=== PATIENT | female | born 1980 | race Caucasian/White ===

== ENCOUNTER 2017-06-05 18:46 | Emergency (ER) | payer OTHER ==
[~2017-06-05] VITALS: Ht 162.6 cm; Wt 102.5 kg
[~2017-06-05 18:46] MED LIST: ALBU90OI INH; BIRTH CONTROL PO; CHOLESTEROL MED; DIPATR PO; DIPH50 PO; FERSU250ER PO; HYDACE5 PO; NAPR500 PO; NORT10 PO; OXYACE5T PO; PENVK500 PO; PRED20 PO; PROACE100 PO; PROM25 PO; RXPROACE PO; SPIR25 PO; SULTRIDS PO; SULTRISS PO; TRAM50 PO; [UNRECOGNIZED DRUG - REMARK]
[2017-06-05 19:36] LABS: BASOPHILS PERCENT AUTO 0 % (0-2); EOSINOPHILS ABSOLUTE AUTO 0.18 K/mm3 (0.00-0.68); EOSINOPHILS PERCENT AUTO 2 % (0-6); Hematocrit 40.9 % (33.0-51.0); Hemoglobin 13.9 g/dL (11.5-16.0); IMMATURE GRAN ABSOLUTE AUTO 0.01 K/mm3 (0.00-0.10); IMMATURE GRAN PERCENT AUTO 0 % (0-1); LYMPHOCYTES ABSOLUTE AUTO 3.08 K/mm3 (0.84-5.20); LYMPHOCYTES PERCENT AUTO 34 % (21-46); MONOCYTES ABSOLUTE AUTO 0.58 K/mm3 (0.16-1.47); MONOCYTES PERCENT AUTO 6 % (4-13); Mean Corpuscular HGB 30.7 pg (26.0-34.0); Mean Corpuscular Volume 90 fL (80-100); Mean Platelet Volume 11.5 fL (9.1-12.4); NEUTROPHILS ABSOLUTE AUTO 5.29 K/mm3 (1.96-9.15); NEUTROPHILS PERCENT AUTO 58 % (41-73); Platelet Count 236 K/mm3 (150-400); RDW Coefficient Variation 12.6 % (11.7-14.2); RDW Standard Deviation 41.4 fL (35.1-46.3); Red Blood Cell Count 4.53 M/mm3 (3.80-5.20); White Blood Cell Count 9.14 K/mm3 (4.00-11.30)
[2017-06-05 19:41] LABS: Alanine Aminotransfer (ALT/SGP 59 U/L (12-78); Albumin, Blood 3.8 g/dL (3.4-5.0); Alk Phos 90 U/L (50-136); Anion Gap 8 mmol/L (6-16); Aspartate Aminotrans (AST/SGOT 33 U/L (12-37); Bilirubin, Total 0.5 mg/dL (0.1-1.0); Blood Urea Nitrogen 9 mg/dL (8-24); Bun/Creatinine Ratio 13.7 (12.0-20.0); CO2, Blood 25 mmol/L (21-32); Calcium, Blood 8.9 mg/dL (8.5-10.1); Chloride, Blood 107 mmol/L (98-108); Creatinine, Blood 0.66 mg/dL (0.40-1.00); Glomerular Filtration Rate >60 (60-); Glucose, Blood 95 mg/dL (70-99); Potassium, Blood 3.5 mmol/L (3.5-5.5); Sodium, Blood 140 mmol/L (136-145); Total Protein, Blood 7.8 g/dL (6.4-8.2); Troponin I <0.015 ng/mL (0.000-0.040)
[2017-06-05] MEDS ORDERED: LISI5 PO (21:20)
[2017-06-05] MEDS ORDERED: PREG150 PO (21:20)
[2017-06-05] MEDS ORDERED: METF500 PO (21:20)
== END 2017-06-05 22:36 | disposition home or self-care (01) ==
LOC: ER 18:46
PROVIDERS: Physician Assistant
DX: R07.9 Chest pain, unspecified (principal); E11.40 Type 2 diabetes mellitus with diabetic neuropathy, unspecified; I10 Essential (primary) hypertension; Z79.899 Other long term (current) drug therapy; Z79.84 Long term (current) use of oral hypoglycemic drugs
CPT/HCPCS: 36415; 71046; 80053; 84484; 85025; 93005; 93010; 99284

== ENCOUNTER 2018-06-18 09:59 | Day surgery (SDC) | payer OTHER ==
[~2018-06-18] VITALS: Ht 175.3 cm; Wt 108.9 kg
[~2018-06-18 09:59] MED LIST changes: +LISI5 PO; +METF500 PO; +METO50ER PO; +PREG150 PO
--- NOTE | 2018-06-18 10:31 | NUR ---
Ambulatory in Day SurgeryPatient states colon prep results clear. History, Chart, Medications and Allergies reviewed before start of procedure.Lungs clear T/O to Auscultation. Patient confirms NPO status and agrees with scheduled surgery. Patient States Post-Procedure ride home has been arranged.
--- NOTE | 2018-06-18 10:47 | NUR ---
06/18/18 1047 Naga Rosario PATIENT DETERMINED TO BE ASA APPROPRIATE FOR PROPOFOL SEDATION PRIOR TO START OF PROCEDURE BY . 3-LEAD EKG REVIEWED WITH PHYSICIAN PRIOR TO START OF PROCEDURE.PATIENT CONFIRMS NPO STATUS AND AGREES WITH SCHEDULED PROCEDURE.History, Chart, Medications and Allergies reviewed before start of procedure.MONITOR INTACT WITH CONTINUOUS PULSE OXIMETRY AND INTERMITTENT BP.O2 VIA N/C INTACT THROUGHOUT SEDATION/PROCEDURE.HURRICAINE SPRAY TO OROPHARYX.Bite Block Placed
--- NOTE | 2018-06-18 12:10 | NUR ---
Discharge instructions reviewed with patient. Patient verbalizes understanding. Copy given to patient to take home. Discharged via wheelchair to private car for ride home.
== END 2018-06-18 22:37 | disposition home or self-care (01) ==
LOC: ORSCMMR 09:59 → ORD 11:00 → ORSCMMR 22:37
PROVIDERS: Internal Medicine Gastroenterology
PROC: 0DBL8ZX Excision of Transverse Colon, Via Natural or Artificial Opening Endoscopic, Diagnostic (ICD-10-PCS; principal; 2018-06-18 11:00)
PROC: 0DBH8ZX Excision of Cecum, Via Natural or Artificial Opening Endoscopic, Diagnostic (ICD-10-PCS; principal; 2018-06-18 11:00)
PROC: 0DBB8ZX Excision of Ileum, Via Natural or Artificial Opening Endoscopic, Diagnostic (ICD-10-PCS; principal; 2018-06-18 11:00)
PROC: 0DBN8ZX Excision of Sigmoid Colon, Via Natural or Artificial Opening Endoscopic, Diagnostic (ICD-10-PCS; principal; 2018-06-18 11:00)
PROC: 0DB68ZX Excision of Stomach, Via Natural or Artificial Opening Endoscopic, Diagnostic (ICD-10-PCS; 2018-06-18 11:00)
PROC: 0DB98ZX Excision of Duodenum, Via Natural or Artificial Opening Endoscopic, Diagnostic (ICD-10-PCS; 2018-06-18 11:00)
PROC: 0DB88ZX Excision of Small Intestine, Via Natural or Artificial Opening Endoscopic, Diagnostic (ICD-10-PCS; 2018-06-18 11:00)
PROC: 0DB48ZX Excision of Esophagogastric Junction, Via Natural or Artificial Opening Endoscopic, Diagnostic (ICD-10-PCS; 2018-06-18 11:00)
DX: R19.7 Diarrhea, unspecified (principal); D12.0 Benign neoplasm of cecum; K31.7 Polyp of stomach and duodenum; K29.80 Duodenitis without bleeding; K20.9 Esophagitis, unspecified; E88.81 Metabolic syndrome and other insulin resistance; K57.30 Diverticulosis of large intestine without perforation or abscess without bleeding; Z87.11 Personal history of peptic ulcer disease; Z80.0 Family history of malignant neoplasm of digestive organs; I10 Essential (primary) hypertension; Z79.899 Other long term (current) drug therapy
CPT/HCPCS: 82947; 88305; 88312; 88341; 88342; J7120

== ENCOUNTER → 2018-07-02 | Outpatient (CLI) | payer OTHER ==
[2018-07-03 07:59] LABS: Adenovirus F 40/41 Not Detected (NOT DETECT); Astrovirus Not Detected (NOT DETECT); Campylobacter Sp Not Detected (NOT DETECT); Cryptosporidium Not Detected (NOT DETECT); Cyclospora Cayetanensis Not Detected (NOT DETECT); E. Coli O157 Not Detected (NOT DETECT); Entamoeba Histolytica Not Detected (NOT DETECT); Enteroaggregative E. coli-EAEC Not Detected (NOT DETECT); Enteropathogenic E. coli-EPEC Not Detected (NOT DETECT); Enterotoxigenic E. coli-ETEC Not Detected (NOT DETECT); Giardia Lamblia Not Detected (NOT DETECT); Norovirus GI/GII Not Detected (NOT DETECT); Plesiomonas Shigelloides Not Detected (NOT DETECT); Rotavirus A Not Detected (NOT DETECT); Salmonella Sp Not Detected (NOT DETECT); Sapovirus Not Detected (NOT DETECT); Shiga Toxin-prod E. coli-STEC Not Detected (NOT DETECT); Shigella/Enteroin E. coli-EIEC Not Detected (NOT DETECT); Vibrio Cholerae Not Detected (NOT DETECT); Vibrio Sp Not Detected (NOT DETECT); Yersinia Enterocolitica Not Detected (NOT DETECT)
== END | disposition home or self-care (01) ==
LOC: LAB 10:43 → LAB SHORT 10:43 → LAB FUT 06-11 09:55
PROVIDERS: Internal Medicine Gastroenterology
DX: R19.7 Diarrhea, unspecified (principal)
CPT/HCPCS: 87507

== ENCOUNTER 2018-08-10 15:10 | Emergency (ER) | payer OTHER ==
[~2018-08-10] VITALS: Ht 175.3 cm; Wt 108.9 kg
[2018-08-10] MEDS ORDERED: KETO10 PO (15:44)
[2018-08-10] MEDS ORDERED: HYDR1TAB94 PO (15:44)
[2018-08-10] MEDS ORDERED: CYCL10 PO (15:52)
== END 2018-08-10 15:55 | disposition home or self-care (01) ==
LOC: ER 15:10
DX: M54.42 Lumbago with sciatica, left side (principal); Z79.84 Long term (current) use of oral hypoglycemic drugs; Z79.899 Other long term (current) drug therapy
CPT/HCPCS: 99282

== ENCOUNTER 2018-08-23 11:55 | Emergency (ER) | payer OTHER ==
[~2018-08-23] VITALS: Ht 175.3 cm; Wt 108.9 kg
[~2018-08-23 11:55] MED LIST changes: +CYCL10 PO; +HYDR1TAB94 PO; +KETO10 PO; +NAPR550 PO; +Norco 5-325 Ta1 EACH PO
[2018-08-23] MEDS ORDERED: KETO10 PO (12:59)
== END 2018-08-23 13:22 | disposition home or self-care (01) ==
LOC: ER 11:55
DX: G89.29 Other chronic pain (principal); M54.42 Lumbago with sciatica, left side; Z79.899 Other long term (current) drug therapy; Z79.84 Long term (current) use of oral hypoglycemic drugs
CPT/HCPCS: 99283

== ENCOUNTER → 2019-02-04 | Outpatient (CLI) | payer OTHER ==
[2019-02-05 11:07] LABS: Candida species (DNA Probe) Negative (NEGATIVE); G. vaginalis (DNA Probe) Negative (NEGATIVE); T. vaginalis (DNA Probe) Negative (NEGATIVE)
[2019-02-07 03:07] LABS: CHLAMYDIA TRACHOMATIS, NAA Negative (Negative); HPV 16 Negative (Negative); HPV 18 Negative (Negative); HPV OTHER HR TYPES Negative (Negative); NEISSERIA GONORRHOEAE, NAA Negative (Negative)
== END | disposition home or self-care (01) ==
LOC: LAB 16:09 → LAB SHORT 16:09
PROVIDERS: Obstetrics & Gynecology
DX: Z01.411 Encounter for gynecological examination (general) (routine) with abnormal findings (principal); Z11.3 Encounter for screening for infections with a predominantly sexual mode of transmission; N76.0 Acute vaginitis
CPT/HCPCS: 87480; 87491; 87510; 87591; 87624; 87660; G0123

== ENCOUNTER → 2019-03-05 | Outpatient (CLI) | payer OTHER | END | disposition home or self-care (01) | LOC: LAB 15:37 → LAB SHORT 15:37 | DX: J02.9 Acute pharyngitis, unspecified (principal) | CPT/HCPCS: 87081 ==

== ENCOUNTER → 2019-04-22 | Outpatient (CLI) | payer OTHER | END | disposition home or self-care (01) | LOC: LAB SHORT 11:25 → LAB 11:25 | DX: J02.9 Acute pharyngitis, unspecified (principal) | CPT/HCPCS: 87081 ==

== ENCOUNTER → 2020-02-18 | Outpatient (CLI) | payer OTHER | END | disposition home or self-care (01) | LOC: PLD 08:16 → LAB SHORT 08:16 | DX: N92.0 Excessive and frequent menstruation with regular cycle (principal) | CPT/HCPCS: 88305 ==

== ENCOUNTER 2020-06-16 09:13 | Day surgery (SDC) | payer OTHER ==
[~2020-06-16] VITALS: Ht 175.3 cm; Wt 105.6 kg
[~2020-06-16 09:13] MED LIST changes: +ALOGLIPTIN25 M1 PO; +ALOGLIPTIN6.25 M1 PO; +CLOBET30L TOP; +GLIM2 PO; +IBUP800 PO; +LYRICA PO; +NORTRIPTYLINE H PO; +ONDA4 PO; +Percocet 5-3251 EACH PO; +TRIDERM28.4 GM TOP
--- NOTE | 2020-06-16 09:55 | NUR ---
Ambulatory in Day Surgery History, Chart, Medications and Allergies reviewed before start of procedure.Patient confirms NPO status and agrees with scheduled surgery. Pre-Op teaching done. Pt verbalizes understanding.
--- NOTE | 2020-06-16 14:31 | NUR ---
1330 AMBULATION PT ASSISTED UP TO RESTROOM. 1CM LACERATION NOTICED ON RIGHT BUTTOCK, SCANT BLOODY DRAINAGE. PT IS UNAWARE OF LACERATION AND DENIES ANY PAIN. PT IS ANXIOUS AND INSISTENT THAT SHE NEEDS TO HAVE A BM. EDUCATION GIVEN TO PT REGARDING DUE TO NPO, SURGERY IT MAY BE A FEW DAYS BEFORE HAS BM. PT REPORTS HAVING A BM ON 06/15/20.
--- NOTE | 2020-06-16 18:32 | NUR ---
1805 DISCHARGE PT LEANN PO FOOD AND FLUIDS WITHOUT NAUSEA. AMB IN ROOM, VOIDING. SCANT PINK BLOODY DRAINAGE ON CHRISTINA PAD. PT REPORTS PAIN IS ADEQUATELY CONTROLLED. DISCHARGED TO HOME
== END 2020-06-16 18:13 | disposition home or self-care (01) ==
LOC: ORSCMMR 09:13 → SURS 14:48
PROVIDERS: Obstetrics & Gynecology
PROC: 8E0W4CZ Robotic Assisted Procedure of Trunk Region, Percutaneous Endoscopic Approach (ICD-10-PCS; principal; 2020-06-16 10:30)
PROC: 0UT94ZZ Resection of Uterus, Percutaneous Endoscopic Approach (ICD-10-PCS; principal; 2020-06-16 10:30)
PROC: 0UT74ZZ Resection of Bilateral Fallopian Tubes, Percutaneous Endoscopic Approach (ICD-10-PCS; principal; 2020-06-16 10:30)
DX: N80.0 Endometriosis of uterus (principal); N92.0 Excessive and frequent menstruation with regular cycle; D25.9 Leiomyoma of uterus, unspecified; R10.2 Pelvic and perineal pain; Q50.5 Embryonic cyst of broad ligament; E11.42 Type 2 diabetes mellitus with diabetic polyneuropathy; E66.9 Obesity, unspecified; Z68.34 Body mass index [BMI] 34.0-34.9, adult; Z79.84 Long term (current) use of oral hypoglycemic drugs; Z79.899 Other long term (current) drug therapy
CPT/HCPCS: 58571; S2900; 82947; 86850; 86900; 86901; 88307; A9270; J0690; J1100; J1885; J2060; J2250; J2405; J2704; J3010; J7030; J7120

== ENCOUNTER 2021-04-20 17:41 | Emergency (ER) | payer OTHER ==
[~2021-04-20] VITALS: Ht 175.3 cm; Wt 106.6 kg
[2021-04-20 19:00] LABS: BASOPHILS ABSOLUTE AUTO 0.01 K/mm3 (0.00-0.23); BASOPHILS PERCENT AUTO 0 % (0-2); EOSINOPHILS ABSOLUTE AUTO 0.21 K/mm3 (0.00-0.68); EOSINOPHILS PERCENT AUTO 3 % (0-6); Hematocrit 39.2 % (33.0-51.0); Hemoglobin 13.1 g/dL (11.5-16.0); IMMATURE GRAN ABSOLUTE AUTO 0.06 K/mm3 (0.00-0.10); IMMATURE GRAN PERCENT AUTO 1 % (0-1); LYMPHOCYTES ABSOLUTE AUTO 2.03 K/mm3 (0.84-5.20); LYMPHOCYTES PERCENT AUTO 25 % (21-46); MONOCYTES ABSOLUTE AUTO 0.57 K/mm3 (0.16-1.47); MONOCYTES PERCENT AUTO 7 % (4-13); Mean Corpuscular HGB 29.9 pg (26.0-34.0); Mean Corpuscular HGB Conc 33.4 g/dL (31.5-36.5); Mean Corpuscular Volume 90 fL (80-100); Mean Platelet Volume 11.6 fL (9.1-12.4); NEUTROPHILS ABSOLUTE AUTO 5.13 K/mm3 (1.96-9.15); NEUTROPHILS PERCENT AUTO 64 % (41-73); Platelet Count 199 K/mm3 (150-400); RDW Coefficient Variation 12.5 % (11.7-14.2); RDW Standard Deviation 40.9 fL (35.1-46.3); Red Blood Cell Count 4.38 M/mm3 (3.80-5.20); White Blood Cell Count 8.01 K/mm3 (4.00-11.30)
[2021-04-20 19:03] LABS: Source, Urine Clean Catch
[2021-04-20 19:07] LABS: Bilirubin, Urine Neg (Neg); Blood, Urine Neg (Neg); Color, Urine Yellow (P-Yellow); Glucose Qualitative, Urine 3+ (Neg); Ketones, Urine Neg (Neg); Leukocyte Esterase, Urine 2+ (Neg); Nitrite, Urine Neg (Neg); Protein, Urine Neg (Neg); Urobilinogen, Urine NORM (Normal)
[2021-04-20 19:14] LABS: Appearance, Urine Clear (Clear); Bacteria Mod /hpf; Red Blood Cells, Urine 0-2 /hpf (0-2); Squamous Epithelial Cells Few /hpf (Few)
[2021-04-20 19:47] LABS: Alanine Aminotransfer (ALT/SGP 72 U/L (12-78); Albumin, Blood 3.4 g/dL (3.4-5.0); Albumin/Globulin Ratio 0.8 (0.8-1.8); Alk Phos 121 U/L (50-136); Anion Gap 9 mmol/L (6-16); Aspartate Aminotrans (AST/SGOT 36 U/L (12-37); Bilirubin, Total 0.4 mg/dL (0.1-1.0); Blood Urea Nitrogen 9 mg/dL (8-24); Bun/Creatinine Ratio 13.6 (12.0-20.0); CO2, Blood 25 mmol/L (21-32); Chloride, Blood 103 mmol/L (98-108); Creatinine, Blood 0.66 mg/dL (0.40-1.00); Globulin, Blood 4.1 g/dL (2.2-4.0); Glomerular Filtration Rate >60 (60-); Glucose, Blood 236 mg/dL (70-99); Potassium, Blood 3.7 mmol/L (3.5-5.5); Sodium, Blood 137 mmol/L (136-145); Total Protein, Blood 7.5 g/dL (6.4-8.2)
[2021-04-20] MEDS ORDERED: PREGABALIN75 MG PO (19:57)
[2021-04-20] MEDS ORDERED: [UNRECOGNIZED DRUG - CODE] PO (19:58)
[2021-04-20] MEDS ORDERED: Nortriptyline H75 MG PO (19:59)
[2021-04-20] MEDS ORDERED: LATANOPROST2.5 M3 OP (19:59)
[2021-04-20] MEDS ORDERED: VITAMIN D5000 UNIT PO (20:00)
[2021-04-20] MEDS ORDERED: NORTRIPTYLINE H PO (20:00)
[2021-04-20] MEDS ORDERED: Lisinopril-Hct1 EAC4 PO (20:00)
[2021-04-20] MEDS ORDERED: NESINA PO (20:01)
[2021-04-20] MEDS ORDERED: ATOM18 PO (20:01)
[2021-04-20] MEDS ORDERED: Fenofibrate200 MG PO (20:02)
[2021-04-20] MEDS ORDERED: TIMO10T (20:02)
[2021-04-20] MEDS ORDERED: Doxycycline Mon50 MG PO (20:03)
[2021-04-20] MEDS ORDERED: NYSTOP15 GM TOP (20:04)
[2021-04-20] MEDS ORDERED: BRIMONIDINE TART5 M2 OP (20:04)
[2021-04-20] MEDS ORDERED: Bactrim Ds Tab1 EACH PO (20:25)
== END 2021-04-20 20:46 | disposition home or self-care (01) ==
LOC: ER 17:41
PROVIDERS: Physician Assistant
DX: N39.0 Urinary tract infection, site not specified (principal); N83.01 Follicular cyst of right ovary; I10 Essential (primary) hypertension; E11.9 Type 2 diabetes mellitus without complications; Z88.8 Allergy status to other drugs, medicaments and biological substances; Z79.899 Other long term (current) drug therapy; Z79.84 Long term (current) use of oral hypoglycemic drugs
CPT/HCPCS: 36415; 74176; 80053; 81001; 83690; 85025; 87077; 87086; 87186; 96374; 99284-25; A9270; J1885

== ENCOUNTER 2021-05-20 12:25 | Emergency (ER) | payer OTHER ==
[~2021-05-20] VITALS: Ht 172.7 cm; Wt 104.3 kg
[~2021-05-20 12:25] MED LIST changes: +ATOM18 PO; +BRIMONIDINE TART5 M2 OP; +Bactrim Ds Tab1 EACH PO; +Doxycycline Mon50 MG PO; +Fenofibrate200 MG PO; +LATANOPROST2.5 M3 OP; +Lisinopril-Hct1 EAC4 PO; +NESINA PO; +NYSTOP15 GM TOP; +Nortriptyline H75 MG PO; +PREGABALIN75 MG PO; +TIMO10T; +VITAMIN D5000 UNIT PO; +[UNRECOGNIZED DRUG - CODE] PO
[2021-05-20 12:46] LABS: Source, Urine Clean Catch
[2021-05-20 12:54] LABS: Appearance, Urine Clear (Clear); Bilirubin, Urine Neg (Neg); Blood, Urine Neg (Neg); Color, Urine Yellow (P-Yellow); Glucose Qualitative, Urine 2+ (Neg); Ketones, Urine Neg (Neg); Leukocyte Esterase, Urine 1+ (Neg); Nitrite, Urine Neg (Neg); Protein, Urine 1+ (Neg); Urobilinogen, Urine NORM (Normal)
[2021-05-20 13:07] LABS: Bacteria Few /hpf; Red Blood Cells, Urine 0-2 /hpf (0-2); Squamous Epithelial Cells Few /hpf (Few); White Blood Cells, Urine 0-2 /hpf (0-5)
[2021-05-20 13:08] LABS: BASOPHILS PERCENT AUTO 0 % (0-2); EOSINOPHILS PERCENT AUTO 1 % (0-6); Hematocrit 41.1 % (33.0-51.0); Hemoglobin 13.4 g/dL (11.5-16.0); IMMATURE GRAN ABSOLUTE AUTO 0.03 K/mm3 (0.00-0.10); IMMATURE GRAN PERCENT AUTO 0 % (0-1); LYMPHOCYTES ABSOLUTE AUTO 1.36 K/mm3 (0.84-5.20); LYMPHOCYTES PERCENT AUTO 19 % (21-46); MONOCYTES ABSOLUTE AUTO 0.53 K/mm3 (0.16-1.47); MONOCYTES PERCENT AUTO 7 % (4-13); Mean Corpuscular HGB 29.5 pg (26.0-34.0); Mean Corpuscular HGB Conc 32.6 g/dL (31.5-36.5); Mean Corpuscular Volume 90 fL (80-100); Mean Platelet Volume 11.4 fL (9.1-12.4); NEUTROPHILS ABSOLUTE AUTO 5.31 K/mm3 (1.96-9.15); NEUTROPHILS PERCENT AUTO 72 % (41-73); Platelet Count 187 K/mm3 (150-400); RDW Coefficient Variation 12.6 % (11.7-14.2); RDW Standard Deviation 41.3 fL (35.1-46.3); Red Blood Cell Count 4.55 M/mm3 (3.80-5.20); White Blood Cell Count 7.33 K/mm3 (4.00-11.30)
[2021-05-20 13:32] LABS: Alanine Aminotransfer (ALT/SGP 59 U/L (12-78); Albumin, Blood 3.6 g/dL (3.4-5.0); Alk Phos 104 U/L (50-136); Anion Gap 8 mmol/L (6-16); Aspartate Aminotrans (AST/SGOT 36 U/L (12-37); Bilirubin, Total 0.4 mg/dL (0.1-1.0); Blood Urea Nitrogen 10 mg/dL (8-24); Bun/Creatinine Ratio 18.1 (12.0-20.0); CO2, Blood 25 mmol/L (21-32); Calcium, Blood 9.1 mg/dL (8.5-10.1); Chloride, Blood 107 mmol/L (98-108); Creatinine, Blood 0.55 mg/dL (0.40-1.00); Globulin, Blood 3.6 g/dL (2.2-4.0); Glomerular Filtration Rate >60 (60-); Glucose, Blood 180 mg/dL (70-99); Potassium, Blood 4.1 mmol/L (3.5-5.5); Sodium, Blood 140 mmol/L (136-145); Total Protein, Blood 7.2 g/dL (6.4-8.2)
[2021-05-20] MEDS ORDERED: Norco 5-325 Ta1 EACH PO (15:05)
== END 2021-05-20 15:50 | disposition home or self-care (01) ==
LOC: ER 12:25
PROVIDERS: Physician Assistant
DX: N83.201 Unspecified ovarian cyst, right side (principal); E11.9 Type 2 diabetes mellitus without complications; I10 Essential (primary) hypertension; Z88.8 Allergy status to other drugs, medicaments and biological substances; Z79.899 Other long term (current) drug therapy; Z79.84 Long term (current) use of oral hypoglycemic drugs
CPT/HCPCS: 36415; 76830; 76856; 80053; 81001; 81025; 85025; 87086; 99284-25

== ENCOUNTER → 2021-08-03 | Outpatient (CLI) | payer OTHER ==
[2021-08-03 18:44] LABS: Source, Urine Clean Catch
[2021-08-03 20:07] LABS: Bilirubin, Urine Neg (Neg); Blood, Urine Neg (Neg); Glucose Qualitative, Urine 1+ (Neg); Ketones, Urine Neg (Neg); Leukocyte Esterase, Urine Neg (Neg); Nitrite, Urine Neg (Neg); Protein, Urine Neg (Neg); Urobilinogen, Urine NORM (Normal)
[2021-08-03 20:17] LABS: Appearance, Urine Cloudy (Clear); Color, Urine Yellow (P-Yellow)
[2021-08-03 20:21] LABS: Amorphous Heavy (0-Heavy); Bacteria Few /hpf; Calcium Oxalate Crystals Few /hpf; Red Blood Cells, Urine Not Seen /hpf (0-2); Squamous Epithelial Cells Few /hpf (Few); Uric Acid Crystals Mod /hpf; White Blood Cells, Urine Not Seen /hpf (0-5)
== END ==
LOC: LAB SHORT 18:43 → LAB 18:43
PROVIDERS: Obstetrics & Gynecology
DX: Z01.818 Encounter for other preprocedural examination (principal)
CPT/HCPCS: 81001

== ENCOUNTER 2021-08-14 06:49 | Day surgery (SDC) | payer OTHER ==
[~2021-08-14] VITALS: Ht 175.3 cm; Wt 107.2 kg
--- NOTE | 2021-08-14 09:22 | NUR ---
08/14/21 0922 Shun Sánchez REQUESTED BY DR. LUCIANO. PLACED WITH STERILE TECHNIQUE AND INFLATED WITH 10CC OF FLUID PRE OPERATIVELY IN THE OR. CLEAR YELLOW URINE.
== END 2021-08-14 22:43 | disposition home or self-care (01) ==
LOC: ORSCMMR 06:49 → ORD 08:45 → ORSCMMR 22:43
PROVIDERS: Surgery
PROC: BF031ZZ Plain Radiography of Gallbladder and Bile Ducts using Low Osmolar Contrast (ICD-10-PCS; principal; 2021-08-14 08:45)
PROC: 0FT44ZZ Resection of Gallbladder, Percutaneous Endoscopic Approach (ICD-10-PCS; principal; 2021-08-14 08:45)
PROC: 0UJH4ZZ Inspection of Vagina and Cul-de-sac, Percutaneous Endoscopic Approach (ICD-10-PCS; principal; 2021-08-14 08:45)
DX: K81.1 Chronic cholecystitis (principal); R10.2 Pelvic and perineal pain; N83.02 Follicular cyst of left ovary; I10 Essential (primary) hypertension; E11.42 Type 2 diabetes mellitus with diabetic polyneuropathy; K75.81 Nonalcoholic steatohepatitis (NASH); Z79.84 Long term (current) use of oral hypoglycemic drugs; Z79.899 Other long term (current) drug therapy; E66.9 Obesity, unspecified; Z68.34 Body mass index [BMI] 34.0-34.9, adult; F43.10 Post-traumatic stress disorder, unspecified
CPT/HCPCS: 74300; 82947; 88304; A9270; C1729; J0690; J1100; J1885; J2250; J2405; J2704; J3010; J7120

== ENCOUNTER → 2022-01-01 | Outpatient (CLI) | payer OTHER ==
[2022-01-01 14:26] LABS: Candida species (DNA Probe) Positive (NEGATIVE); G. vaginalis (DNA Probe) Negative (NEGATIVE); T. vaginalis (DNA Probe) Negative (NEGATIVE)
== END | disposition home or self-care (01) ==
LOC: LAB SHORT 12:06 → LAB 12:06
PROVIDERS: Advanced Practice Midwife
DX: N76.0 Acute vaginitis (principal)
CPT/HCPCS: 87480; 87510; 87660

== ENCOUNTER → 2023-05-08 | Outpatient (CLI) | payer OTHER | LOC: LAB SHORT 15:00 → LAB 15:00 | DX: L02.415 Cutaneous abscess of right lower limb (principal); L97.511 Non-pressure chronic ulcer of other part of right foot limited to breakdown of skin; E11.42 Type 2 diabetes mellitus with diabetic polyneuropathy | CPT/HCPCS: 87070; 87077; 87186; 87205 ==

== ENCOUNTER 2023-06-26 07:04 | Day surgery (SDC) | payer OTHER ==
[2023-06-26] VITALS (22 sets, daily range): BP systolic 79–124; BP diastolic 48–98
[~2023-06-26] VITALS: Ht 172.7 cm; Wt 98.1 kg
[~2023-06-26 07:04] MED LIST changes: +BUPR150ER; +GABA800
--- NOTE | 2023-06-26 07:39 | NUR ---
History, Chart, Medications and Allergies reviewed before start of procedure. Patient up to Ambulate independently. Gait steady. Pre-Op teaching done. Pt verbalizes understanding. Patient confirms NPO status and agrees with scheduled surgery. Patient states colon prep results hanson & cloudy. Patient States Post-Procedure ride home has been arranged.
--- NOTE | 2023-06-26 07:52 | NUR ---
06/26/23 0752 Sampson Machado HISTORY, CHART, MEDICATIONS AND ALLERGIES REVIEWED BEFORE START OF PROCEDURE. PATIENT CONFIRMS NPO STATUS AND AGREES WITH SCHEDULED PROCEDURE. 3-LEAD EKG REVIEWED WITH PHYSICIAN PRIOR TO START OF PROCEDURE. MONITOR INTACT WITH CONTINUOUS PULSE OXIMETRY,CAPNOGRAPHY, 3-LEAD EKG, INTERMITTENT BP. SUPPLEMENTAL O2 TO BE TITRATED THROUGHOUT PROCEDURE TO MAINTAIN O2 SATURATION ABOVE 90%. PATIENT DETERMINED TO BE ASA APPROPRIATE FOR PROPOFOL SEDATION PRIOR TO START OF PROCEDURE BY
--- NOTE | 2023-06-26 09:22 | NUR ---
DISCHARGE NOTE PT A&OX4, BREATHING RA, NO COMPLAINTS, ABDOMEN REMAINS SOFT AND NON-TENDER. PT TOLERATING PO FLUIDS. Patient up to Ambulate independently. Gait steady. Discharge instructions reviewed with patient. Patient verbalizes understanding. Copy given to patient to take home. Discharged via wheelchair to private car for ride home.
== END 2023-06-26 09:15 | disposition home or self-care (01) ==
LOC: ORSCMMR 07:04 → ORD 08:00 → ORSCMMR 09:15
PROVIDERS: Internal Medicine Gastroenterology
PROC: 0DJD8ZZ Inspection of Lower Intestinal Tract, Via Natural or Artificial Opening Endoscopic (ICD-10-PCS; principal; 2023-06-26 08:00)
PROC: 0DB48ZX Excision of Esophagogastric Junction, Via Natural or Artificial Opening Endoscopic, Diagnostic (ICD-10-PCS; principal; 2023-06-26 08:00)
DX: R10.13 Epigastric pain (principal); K62.5 Hemorrhage of anus and rectum; Z80.0 Family history of malignant neoplasm of digestive organs; K57.30 Diverticulosis of large intestine without perforation or abscess without bleeding; K20.90 Esophagitis, unspecified without bleeding; K86.89 Other specified diseases of pancreas; E11.9 Type 2 diabetes mellitus without complications; Z79.84 Long term (current) use of oral hypoglycemic drugs; Z79.899 Other long term (current) drug therapy
CPT/HCPCS: 82947; 88305; 88312; A9270; J2704; J7120

== ENCOUNTER → 2023-08-19 | Outpatient (CLI) | payer OTHER ==
[2023-08-19 20:07] LABS: Bacterial Vaginosis PCR Negative (NEGATIVE); Candida Group, PCR NOT DETECTED (NOT DETECT); Candida glabrata-krusei, PCR NOT DETECTED (NOT DETECT)
== END ==
LOC: LAB 15:50 → LAB EV 15:50 → LAB SHORT 15:50
PROVIDERS: Advanced Practice Midwife
DX: N76.0 Acute vaginitis (principal)
CPT/HCPCS: 87481; 87661; 87801

== ENCOUNTER 2025-04-12 09:21 | Day surgery (SDC) | payer OTHER ==
[~2025-04-12] VITALS: Ht 175.3 cm; Wt 100.3 kg
[~2025-04-12 09:21] MED LIST changes: +Lidocaine HCl 2% 10 ML SDA ONE
[2025-04-12] MEDS ORDERED: CeFAZolin Sodium 2,000 MG VIAL ONE (09:36)
[2025-04-12] MEDS ORDERED: ZANAFLEX413 PO (09:48)
[2025-04-12] MEDS ORDERED: PIOGLITAZONE HC15 MG PO (09:48)
[2025-04-12] MEDS ORDERED: Hydroxychloroq200 MG PO (09:49)
[2025-04-12] MEDS ORDERED: PREGABALIN75 MG PO (09:49)
[2025-04-12] MEDS ORDERED: Rocuronium Bromide 10 MG/ML 5ML Injection IV ONE (10:22)
[2025-04-12] MEDS ORDERED: FentaNYL Citrate 50 MCG/ML 2 ML Injection ONE (10:23)
[2025-04-12] MEDS ORDERED: Ondansetron HCl 2 MG / ML 2ML Vial ONE (10:51)
[2025-04-12] MEDS ORDERED: Metoclopramide HCl 5MG / ML 2ML Vial ONE (10:51)
[2025-04-12] MEDS ORDERED: Sugammadex Sodium 200 MG/2ML SDV (100 MG/ML) ONE (10:51)
[2025-04-12 11:19] VITALS: BP 104/69
== END 2025-04-12 11:59 | disposition home or self-care (01) ==
LOC: ORSCSDS 09:21
PROVIDERS: Orthopaedic Surgery
PROC: 01N54ZZ Release Median Nerve, Percutaneous Endoscopic Approach (ICD-10-PCS; principal; 2025-04-12 11:00)
PROC: 01N40ZZ Release Ulnar Nerve, Open Approach (ICD-10-PCS; principal; 2025-04-12 11:00)
DX: G56.23 Lesion of ulnar nerve, bilateral upper limbs (principal); G56.03 Carpal tunnel syndrome, bilateral upper limbs; E11.9 Type 2 diabetes mellitus without complications; I10 Essential (primary) hypertension; F41.9 Anxiety disorder, unspecified; K75.81 Nonalcoholic steatohepatitis (NASH); F43.10 Post-traumatic stress disorder, unspecified; E66.9 Obesity, unspecified; Z68.32 Body mass index [BMI] 32.0-32.9, adult; Z79.84 Long term (current) use of oral hypoglycemic drugs; Z79.899 Other long term (current) drug therapy
CPT/HCPCS: 82947; J0690; J2003; J2405; J2704; J2765; J3010; J7120